=== PATIENT | female | born 1945 | race Caucasian/White ===

== ENCOUNTER → 2019-02-17 | Outpatient (CLI) | payer OTHER ==
--- NOTE | 2019-02-19 11:41 | SLEEP ---
[address] [address] SLEEP STUDY REPORT Name: KHALIF JOHNSON Room: [facility]#: [id number] Admission: 02/17/19 Attend Phys: Bayron Ferrer Discharge: Date of : 47 Report #: [id number] THIS REPORT FOR: //name// CC: Tapan Porras DO This study has been reviewed in its entirety by a board certified sleep specialist DATE OF SERVICE: 02/17/2019 SLEEP STUDY ATTENDING PHYSICIAN: Tapan Porras DO The patient is 73 years old who weighs 140 pounds with a BMI of 24. The patient underwent diagnostic sleep study performed at [facility]. During the night study, the patient spent 410 minutes in bed and slept for 232 minutes with a sleep efficiency of 56%. Sleep latency was 87 minutes with a REM latency of 116 minutes. Overall, sleep architecture showed increased stage 1 sleep, normal stage 2 sleep, normal slow wave and normal REM sleep. During the night study, the patient had 7 obstructive apneas, no mixed or central apneas and 79 hypopneas. The patient's apnea-hypopnea index was 22 per hour with a REM index of 13.5 per hour and a supine index of 36 per hour. EKG monitoring revealed an average heart rate of 63 beats per minute. No sustained arrhythmias observed. PLMS were seen at an index of 149 per hour and 26 per hour caused EEG arousals. Nocturnal oximetry study revealed an average oxygen saturation of 91% with lowest of 81%. 59 minutes were spent in oxygen saturation of less than 90%. Due to reduced sleep time CPAP could not be initiated, although the patient did meet the protocol, but it was late in the night. IMPRESSION: 1. Moderate sleep apnea-hypopnea syndrome with worsening during supine sleep. Total AHI of 22 per hour with a supine AHI of 36 per hour. 2. Nocturnal hypoxia secondary to obstructive sleep apnea. 3. Severe periodic limb movements at an index of 149 per hour and 25 per hour caused EEG arousals. 4. Reduced sleep efficiency of 56%, resulting from sleep onset [place] [address] SLEEP STUDY REPORT Name: KHALIF JOHNSON Room: [facility]#: [id number] Admission: 02/17/19 Attend Phys: Bayron Ferrer Discharge: Date of : 47 Report #: [id number] RECOMMENDATIONS: 1. The patient should return to the sleep lab for CPAP titration study. 2. Once the patient is optimally treated, then follow up in 4-6 weeks to assess compliance with CPAP and to document clinical improvement. 3. Avoid [employer] depressants. 4. Cautioned regarding driving until symptoms of sleep apnea resolve with the use of CPAP. 5. The patient's PLMS can be treated with dopaminergic agonist agents. The patient should also be further evaluated for symptoms of restless legs during the day. 6. If the patient has chronic insomnia, then it should be further evaluated and treated according to the etiology. <ELECTRONICALLY SIGNED> By: Jose Gonsales MD 02/19/19 1141 1819 1925Amalathi Gonsales MD /nt
== END ==
LOC: M.SLEEPLAB 20:50
DX: G47.30 Sleep apnea, unspecified (principal); G47.33 Obstructive sleep apnea (adult) (pediatric); R09.02 Hypoxemia; G47.61 Periodic limb movement disorder; J44.9 Chronic obstructive pulmonary disease, unspecified; F32.9 Major depressive disorder, single episode, unspecified; E78.5 Hyperlipidemia, unspecified; I10 Essential (primary) hypertension

== ENCOUNTER → 2019-03-09 | Outpatient (CLI) | payer OTHER | LOC: M.RAD 15:02 | DX: M85.88 Other specified disorders of bone density and structure, other site (principal) ==

== ENCOUNTER → 2019-03-31 | Outpatient (CLI) | payer OTHER ==
--- NOTE | 2019-04-04 12:50 | SLEEP ---
[address] [address] SLEEP STUDY REPORT Name: [address] Room: [facility]#: [id number] Admission: 03/31/19 Attend Phys: Bayron Ferrer Discharge: Date of : 47 Report #: [id number] THIS REPORT FOR: //name// CC: Tapan Porras DO This study has been reviewed in its entirety by a board certified sleep specialist DATE OF SERVICE: 03/31/2019 SLEEP STUDY ATTENDING PHYSICIAN: Tapan Porras D.O. The patient is 73 years old who weighs 140 pounds with a BMI of 24. The patient has a diagnosis of sleep apnea and was referred back for CPAP titration study. Results of diagnostic study were not available at the time of dictation. During the night study, the patient spent 452 minutes in bed and slept for 293 minutes with a sleep efficiency of 65%. Sleep latency was 100.9 minutes with a REM latency of 133 minutes. Overall, sleep architecture showed normal stage 1 and stage 2 sleep, increased slow wave and normal REM sleep. EKG monitoring revealed average heart rate of 51 beats per minute. No sustained arrhythmias observed. PLMS were seen at an index of 134 per hour and 8 per hour caused EEG arousals. The patient was started on CPAP at 5 cm water and titrated up to 7 cm water. At the final pressure, the patient slept for 101 minutes. The patient had 25 minutes of lateral REM sleep. The patient's AHI was reduced to 0 per hour and oxygen saturations remained above 91%. IMPRESSION: 1. Sleep apnea diagnosed previously. 2. Severe periodic limb movements. 3. Reduced sleep efficiency resulting from sleep onset and sleep maintenance insomnia. RECOMMENDATIONS: 1. CPAP at 7 cm water completely eliminated the patient's sleep apnea and should be used on a nightly basis. 2. Follow up in 4-6 weeks to assess compliance with CPAP and to document clinical improvement. 3. Avoid [employer] [place] [address] SLEEP STUDY REPORT Name: KHALIF JOHNSON Room: [facility]#: [id number] Admission: 03/31/19 Attend Phys: Bayron Ferrer Discharge: Date of : 47 Report #: [id number] 4. Cautioned regarding driving until symptoms of sleep apnea resolve with the use of CPAP. 5. The patient should also be further evaluated for symptoms of restless legs during the day. 6. If the patient's insomnia persists despite effective use of CPAP, then it should be further treated according to the etiology. <ELECTRONICALLY SIGNED> By: Jose Gonsales MD 04/04/19 1250 1826 Sarah Gonsales MD /nt
== END ==
LOC: M.SLEEPLAB 03-30 20:00
DX: G47.30 Sleep apnea, unspecified (principal)